=== PATIENT | male | born 1985 | race American Indian/Alaskan Native ===

== ENCOUNTER 2018-11-14 05:20 | Emergency (ER) | payer MEDICAID ==
[2018-11-14 05:34] VITALS: BMI 17.9
[2018-11-14] MEDS ORDERED: Sodium Chloride 0.9% 1,000 ML IV ONE (05:37)
--- NOTE | 2018-11-14 05:49 | C.PDOC ---
History Of Present Illness 33-year-old male is brought to the ED for evaluation of nonspecific complaints. Patient complains of abdominal pain, chest pain and dizziness. Patient has history of seizure disorder and stopped taking Dilantin 3 months ago. Patient denies fever, chills. <Jimenez Thornton R - Last Filed: 11/14/18 06:49> History Per: Patient History/Exam Limitations: no limitations Onset/Duration Of Symptoms: Hrs Current Symptoms Are (Timing): Still Present Quality Of Discomfort: "Pain" <Jimenez Thornton - Last Filed: 11/14/18 06:49> <Cole Gaffney - Last Filed: 11/14/18 12:25> Chief Complaint (Nursing): Abdominal Pain Past Medical History Reviewed: Historical Data, Nursing Documentation, Vital Signs Vital Signs: Last Vital Signs Temp Pulse 77 11/14/18 05:31 Resp 20 11/14/18 05:31 BP 117/86 11/14/18 05:31 Pulse Ox 99 11/14/18 05:31 Primary Care Provider: FAMILY PROVIDER,NO - Medical History PMH: Seizures Surgical History: No Surg Hx Family History: States: Unknown Family Hx - Social History Hx Alcohol Use: Yes Hx Substance Use: Yes (MARAJUANA\\ CRACK) <Jimenez Thornton R - Last Filed: 11/14/18 06:49> Vital Signs: Last Vital Signs Temp Pulse 77 11/14/18 05:31 Resp 20 11/14/18 05:31 BP 117/86 11/14/18 05:31 Pulse Ox 99 11/14/18 06:49 <Cole Gaffney - Last Filed: 11/14/18 12:25> Review Of Systems Constitutional: Negative for: Fever, Chills Cardiovascular: Positive for: Chest Pain Gastrointestinal: Positive for: Abdominal Pain Neurological: Positive for: Dizziness <Jimenez Thornton R - Last Filed: 11/14/18 06:49> Physical Exam - Physical Exam Appears: Non-toxic, No Acute Distress Skin: Normal Color, Warm, Dry Head: Atraumatic, Normacephalic Eye(s): bilateral: Normal Inspection Oral Mucosa: Moist Neck: Supple Chest: Symmetrical, No Deformity, No Tenderness Cardiovascular: Rhythm Regular, No Murmur Respiratory: Normal Breath Sounds, No Rales, No Rhonchi, No Wheezing Gastrointestinal/Abdominal: Soft, No Tenderness, No Guarding, No Rebound Extremity: Normal ROM, Capillary Refill (less than 2 seconds ) Neurological/Psych: Other (alert, conscious. no focal deficits ) <Jimenez Thornton R - Last Filed: 11/14/18 06:49> ED Course And Treatment - Laboratory Results Result Diagrams: 11/14/18 06:03 11/14/18 06:03 ECG: Interpreted By Me, Viewed By Me ECG Rhythm: Sinus Rhythm ECG Interpretation: Normal, No Acute Changes Interpretation Of ECG: NSR, J-pt. elevation -early repolarization, normal tracings. Rate From EC O2 Sat by Pulse Oximetry: 99 (on RA ) Pulse Ox Interpretation: Normal - Radiology CXR: Interpreted by Me, Viewed By Me CXR Interpretation: Yes: No Acute Disease, Other (normal chest film). No: Infiltrates Progress Note: Bloodwork and urinalysis ordered and reviewed. IV Fluids given. <Jimenez Thornton - Last Filed: 11/14/18 06:49> - Laboratory Results Result Diagrams: 11/14/18 06:03 11/14/18 06:03 Lab Results: Troponin I < 0.0120 ng/mL (0.00-0.120) 11/14/18 06:22 Total Bilirubin 0.8 mg/dL (0.2-1.3) 11/14/18 06:03 AST 23 U/L (17-59) 11/14/18 06:03 ALT 13 U/L (21-72) L 11/14/18 06:03 Alkaline Phosphatase 59 U/L (38-126) 11/14/18 06:03 Total Protein 7.9 g/dL (6.3-8.3) 11/14/18 06:03 Albumin 4.6 g/dL (3.5-5.0) 11/14/18 06:03 Globulin 3.3 gm/dL (2.2-3.9) 11/14/18 06:03 Albumin/Globulin Ratio 1.4 (1.0-2.1) 11/14/18 06:03 Lipase 43 U/L (23-300) 11/14/18 06:03 Urine Color Yellow (YELLOW) 11/14/18 06:11 Urine Clarity Clear (Clear) 11/14/18 06:11 Urine pH 5.0 (5.0-8.0) 11/14/18 06:11 Ur Specific [place] 1.009 (1.003-1.030) 11/14/18 06:11 Urine Protein Negative mg/dL (NEGATIVE) 11/14/18 06:11 Urine Glucose (UA) Normal mg/dL (Normal) 11/14/18 06:11 Urine Ketones Negative mg/dL (NEGATIVE) 11/14/18 06:11 Urine Blood Negative (NEGATIVE) 11/14/18 06:11 Urine Nitrate Negative (NEGATIVE) 11/14/18 06:11 Urine Bilirubin Negative (NEGATIVE) 11/14/18 06:11 Urine Urobilinogen Normal mg/dL (0.2-1.0) 11/14/18 06:11 Ur Leukocyte Esterase Neg [place]/uL (Negative) 11/14/18 06:11 Urine WBC (Auto) 1 /hpf (0-5) 11/14/18 06:11 Hyaline Casts 3-5 /lpf (0-2) H 11/14/18 06:11 <Cole Gaffney - Last Filed: 11/14/18 12:25> Medical Decision Making Medical Decision Making: Recieved signout from Dr. Thornton: 33 yr old male w/ hx of seizure disorder p/w chest pain, dizziness abdominal pain. Pending troponin additional labs. Was loaded with cerebryx given pt has been non-compliant with his dilantin at home. on exam pt in NAD, sleeping comfortable, denies any current pain. Abd non-ttp. No midline back pain or cvat. No signs of trauma or fall EK, nsr, no stemi Dimer unremarakble troponin unremarkable, pending Dimer +cocaine: endorsed to pt to d/c cocaine use. pt in NAD. Per pt and Dr. Thornton pt takes 100mg of dilantin bid and has been non-compliant. No indication of seizure like activity noted in ED or by pt at home. 0909 dimer elevated, CTPE ordered pt endorsed continued pain after being awakened from sleeping comfortably. ?Gerd, meds ordered. Pt in NAD. 1222 repeat abd exam unremarkable, non-ttp labs largely unremarkable endorsed granuloma on ct and need to f/u w/ pmd and pulm. He is agreeable clear for d/c home with return indications and f/u <Cole Gaffney - Last Filed: 11/14/18 12:25> Disposition <Jimenez Thornton - Last Filed: 11/14/18 06:49> - Disposition Disposition Time: 12:23 <Cole Gaffney - Last Filed: 11/14/18 12:25> - Disposition Referrals: [facility] [Outside] [facility] [Outside] [facility] [Outside] [facility] [Outside] Betty Pak MD [Staff Provider] - Ольга Perez MD [Staff Provider] - aHrper Gonazles MD [Staff Provider] - Alisia Vázquez MD [Staff Provider] - Disposition: HOME/ ROUTINE Condition: STABLE Additional Instructions: NORI GARCIA, thank you for letting us take care of you today. Your provider was Cole Gaffney and you were treated for ABD PAIN. The emergency medical care you received today was directed at your acute symptoms. If you were prescribed any medication, please fill it and take as directed. It may take several days for your symptoms to resolve. Return to the Emergency Department if your symptoms worsen, do not improve, or if you have any other problems. Please contact your doctor or call one of the physicians/clinics you have been referred to that are listed on the Patient Visit Information form that is included in your discharge packet. Bring any paperwork you were given at discharge with you along with any medications you are taking to your follow up visit. Our treatment cannot replace ongoing medical care by a primary care provider outside of the emergency department. Thank you for allowing the [facility] team to be part of your care today. If you had an X-Ray or CT scan: A Radiologist will review the ED reading if any change in treatment is needed we will contact you. If you had a blood, urine, or wound culture: It will take several days for the results, if any change in treatment is needed we will contact you. If you had an STI test: It will take 48 hours for the results. Please call after 1 week if you have not heard back. Prescriptions: Phenytoin, Extended [Dilantin Kapseals] 100 mg PO BID 5 Days #10 cer Instructions: Acute Abdomen (Belly Pain), Adult (DC), Chest Pain (DC), Drug Abuse and Drug Addiction (DC) Forms: [facility] (French) - Clinical Impression Clinical Impression: Chest pain, Abdominal pain, Lung nodule - Scribe Statement The provider has reviewed the documentation as recorded by the Scribe (Deja Sykes) Provider Attestation: All medical record entries made by the Scribe were at my direction and personally dictated by me. I have reviewed the chart and agree that the record accurately reflects my personal performance of the history, physical exam, medical decision making, and the department course for this patient. I have also personally directed, reviewed, and agree with the discharge instructions and disposition. <Jimenez Thornton - Last Filed: 11/14/18 06:49>
[2018-11-14] MEDS ORDERED: Fosphenytoin 1,000 MG in Sodium Chloride 0.9% 50 ML IV STA (06:11)
[2018-11-14] MEDS ORDERED: Sodium Chloride 0.9% 1,000 ML ONE (06:14)
[2018-11-14 06:18] LABS: ALB/GLOB RATIO 1.4 (1.0-2.1); ALBUMIN 4.6 g/dL (3.5-5.0); ALT/SGPT 13 U/L (21-72); AST/SGOT 23 U/L (17-59); BLOOD UREA NITROGEN 7 mg/dL (9-20); CALCIUM 9.7 mg/dl (8.6-10.4); GFR NON-AFRICAN AMERICAN > 60; LIPASE 43 U/L (23-300)
[2018-11-14 06:20] LABS: BASO % 0.3 % (0.0-2.0); EOS # 0.1 K/uL (0.0-0.7); EOS % 0.5 % (0.0-4.0); HEMOGLOBIN 16.2 g/dL (12.0-18.0); LYMPH # 1.3 K/uL (1.0-4.3); MEAN CELL VOLUME 91.3 fL (80.0-94.0); MEAN CORPUSCULAR HEMOGLOBIN 30.2 pg (27.0-31.0); MEAN CORPUSCULAR HGB CONC 33.1 g/dL (33.0-37.0); MEAN PLATELET VOLUME 9.6 fL (7.2-11.7); MONO # 0.8 K/uL (0.0-0.8); MONO % 6.2 % (0.0-10.0); NEUT # 10.9 K/uL (1.8-7.0); RBC 5.36 Mil/uL (4.40-5.90); RED CELL DISTRIBUTION WIDTH 14.2 % (11.5-14.5); WHITE BLOOD COUNT 13.2 K/uL (4.8-10.8)
[2018-11-14 06:30] LABS: URINE BILIRUBIN NEGATIVE (NEGATIVE); URINE BLOOD NEGATIVE (NEGATIVE); URINE CLARITY Clear (Clear); URINE COLOR Yellow (YELLOW); URINE GLUCOSE (UA) NORMAL (Normal); URINE LEUKOCYTE ESTERASE NEG Leu/uL (Negative); URINE PROTEIN NEGATIVE (NEGATIVE); URINE UROBILINOGEN NORMAL mg/dL (0.2-1.0)
[2018-11-14 06:31] LABS: BARBITURATES, UR NEGATIVE (NEGATIVE); BENZODIAZEPINES, UR NEGATIVE (NEGATIVE); OPIATES, UR NEGATIVE (NEGATIVE); PHENCYCLIDINE, UR NEGATIVE (NEGATIVE)
[2018-11-14] MEDS ORDERED: Naproxen 550 mg Tab PO STA (06:55)
[2018-11-14] MEDS ORDERED: Naproxen 550 mg Tab PO ONE (07:21)
[2018-11-14 08:37] VITALS: O2SAT 100
[2018-11-14] MEDS ORDERED: Iodixanol 320 MG/ML 100 ML BOTTLE IV ONE (10:39)
--- NOTE | 2018-11-14 10:55 | RAD ---
Date of service: 11/14/2018 HISTORY: Chest pain COMPARISON: No prior. TECHNIQUE: Chest PA and lateral FINDINGS: LINES AND TUBES: None. LUNG AND PLEURA: The lungs are well inflated and clear. No pleural effusion or pneumothorax. HEART AND MEDIASTINUM: The heart is not enlarged. No aortic atherosclerotic calcifications present. The hilar and mediastinal contours are within normal limits. SKELETAL STRUCTURES: The bony structures are within normal limits for the patient's age. VISUALIZED UPPER ABDOMEN: Normal. OTHER FINDINGS: None. IMPRESSION: No active pulmonary disease.
[2018-11-14 12:08] VITALS: BP 135/90; PULSE 95; RESP 18
--- NOTE | 2018-11-14 12:09 | CT ---
Date of service: 11/14/2018 PROCEDURE: CT Chest with contrast (Pulmonary Angiogram) HISTORY: Chest pain elevated dimer COMPARISON: None available. TECHNIQUE: Axial computed tomography images were obtained of the chest in the pulmonary arterial phase of enhancement. Coronal and sagittal reformatted images were created and reviewed. Intravenous contrast dose: 100 cc Visipaque 320 Radiation dose: Total exam DLP = 289.09 mGy-cm. This CT exam was performed using one or more of the following dose reduction techniques: Automated exposure control, adjustment of the mA and/or kV according to patient size, and/or use of iterative reconstruction technique. FINDINGS: PULMONARY ARTERIES: The visualized pulmonary trunk, right and left main, lobar, segmental and proximal subsegmental branches of the pulmonary arteries are well opacified with no definitive filling defects seen to suggest acute central pulmonary embolus. Pulmonary trunk measures approximately 2.5 cm.. AORTA: No acute findings. No thoracic aortic aneurysm. Ascending thoracic aorta measures approximately 3.2 cm and descending thoracic aorta measures approximately 2.6 cm. No aortic atherosclerotic calcification or mural plaque present. LUNGS: There is an approximately 5.4 x 1.9 cm bulla right middle lobe abutting the pericardial surface. There is an approximately 3 mm calcified granuloma abutting the right anterolateral border surface of the aforementioned bulla. Few small blebs are also seen in the lung apices upper lobes small. Small bleb also present in the left lung base PLEURAL SPACES: Unremarkable. No effusion or pneumothorax. HEART: Heart size upper limits of normal/borderline enlarged. No significant pericardial effusion. LYMPH NODES: No significant mediastinal or hilar adenopathy. Trachea midline and patent with no large central endoluminal lesions. Tiny hiatal hernia. BONES, CHEST WALL: Unremarkable. No fracture or destructive lesion OTHER FINDINGS: Unremarkable. IMPRESSION: No evidence of acute central pulmonary embolus. There are bilateral bleb and bullous changes as above. Small calcified granuloma right middle lobe.
[2018-11-14 13:00] VITALS: TEMP 97.9
--- NOTE | 2018-11-17 03:39 | CARD ---
APPROVED REPORT Date of service: 11/14/2018 EKG Measurement Heart [id number] <Conclusion> Normal sinus rhythm Early repolarization Normal ECG
== END 2018-11-14 12:52 | disposition home or self-care (01) ==
LOC: C.ER 05:20
DX: R07.9 Chest pain, unspecified (principal); R10.9 Unspecified abdominal pain; R91.8 Other nonspecific abnormal finding of lung field; G40.909 Epilepsy, unspecified, not intractable, without status epilepticus
CPT/HCPCS: 71046; 71275; 80053; 80185; 80324; 80345; 80346; 80349; 80353; 80358; 80361; 81001; 83690; 83992; 84484; 85025; 85378; 96365; 96375; 99285; J1885; J7030; Q2009; Q9967